=== PATIENT | female | born 1935 | race American Indian/Alaskan Native ===

== ENCOUNTER 2018-01-04 22:24 | Observation (INO) | payer OTHER ==
[2018-01-04 22:43] VITALS: BMI 22.3
[2018-01-04 23:32] LABS: BASO # 0.02 K/mm3 (0.0-2.0); BASO % 0.1 % (0.0-3.0); EOS % 0.1 % (1.5-5.0); GRAN # 16.14 (1.4-6.5); GRAN % 91.2 % (50.0-68.0); HEMOGLOBIN 12.4 g/dL (12.0-16.0); LYMPH # 1.1 (1.2-3.4); MEAN CELL VOLUME 91.4 fl (80.0-105.0); MEAN CORPUSCULAR HEMOGLOBIN 30.3 pg (25.0-35.0); MEAN CORPUSCULAR HGB CONC 33.2 g/dl (31.0-37.0); MEAN PLATELET VOLUME 10.1 fl (7.0-11.0); MONO # 0.5 (0.1-0.6); MONO % 2.6 % (1.0-6.0); PLATELET COUNT 300 10^3/uL (120.0-450.0); RBC 4.09 10^6/uL (3.5-6.1); RED CELL DISTRIBUTION WIDTH 13.4 % (11.5-14.5); WHITE BLOOD COUNT 17.7 10^3/ul (4.5-11.0)
[2018-01-04 23:43] LABS: ACETAMINOPHEN < 10.0 ug/ml (10.0-20.0); SALICYLATE < 1 mg/dL (2.0-20.0)
[2018-01-05 00:01] LABS: BAND 9 % (0-2); BASOPHIL 1 % (0.0-1.0); LYMPHOCYTE 6 % (22.0-35.0); MONOCYTE 4 % (1.0-6.0); NEUTROPHIL 80 % (50.0-70.0); PLATELET ESTIMATE NORMAL (NORMAL)
[2018-01-05 00:33] LABS: ALB/GLOB RATIO 1.5 (1.1-1.8); CALCIUM 10.1 mg/dL (8.4-10.5); GFR AFRICAN-AMERICAN > 60; GFR NON-AFRICAN AMERICAN > 60
--- NOTE | 2018-01-05 00:39 | ED PDOC ---
Arrival/HPI - General Chief Complaint: Weakness/Neurological Deficit Time Seen by Provider: 01/04/18 22:38 Historian: Patient, EMS - History of Present Illness Narrative History of Present Illness (Text): 01/04/18 22:45 Kimberlee Carvalho is an 82 year old female who presents to the emergency department brought in by EMS for altered mental status. Patient reports she has been experiencing generalized weakness and notes she feels unwell. Patient denies any abdominal pain, urinary symptoms, chest pain, or any other complaints. Symptom Onset: Gradual Symptom Course: Unchanged Activities at Onset: Light Context: Home Past Medical History - Provider Review Nursing Documentation Reviewed: Yes - Psychiatric Hx Substance Use: No Family/Social History - Physician Review Nursing Documentation Reviewed: Yes Family/Social History: Unknown Family HX Smoking Status: Never Smoked Hx Alcohol Use: No Hx Substance Use: No Allergies/Home Meds Allergies/Adverse Reactions: Allergies No Known Allergies Allergy (Verified 01/04/18 22:43) Review of Systems - Physician Review All systems were reviewed & negative as marked: Yes - Review of Systems Constitutional: Other (+generalized weakness). absent: Fevers Eyes: Normal ENT: Normal Respiratory: Normal. absent: SOB, Cough Cardiovascular: Normal. absent: Chest Pain Genitourinary Female: Normal. absent: Dysuria, Frequency, Hematuria, Urine Output Changes Musculoskeletal: Normal. absent: Back Pain, Neck Pain Skin: Normal. absent: Rash Neurological: Normal. absent: Headache, Dizziness Endocrine: Normal Hemo/Lymphatic: Normal Psychiatric: Normal Physical Exam Vital Signs Reviewed: Yes Vital Signs Temp Pulse Resp BP Pulse Ox 01/05/18 05:28 66 18 130/62 95 01/05/18 03:47 69 18 137/67 96 01/05/18 00:58 80 16 130/72 96 01/04/18 22:38 97.6 F 94 H 19 170/66 H 98 Temperature: Afebrile Blood Pressure: Normal Pulse: Regular Respiratory Rate: Normal Appearance: Positive for: Well-Appearing, Non-Toxic, Comfortable Pain Distress: None Mental Status: Positive for: Alert and Oriented X 3 - Systems Exam Head: Present: Atraumatic, Normocephalic Pupils: Present: PERRL Extroacular Muscles: Present: EOMI Conjunctiva: Present: Normal Mouth: Present: Moist Mucous Membranes Neck: Present: Normal Range of Motion Respiratory/Chest: Present: Clear to Auscultation, Good Air Exchange. No: Respiratory Distress, Accessory Muscle Use Cardiovascular: Present: Regular Rate and Rhythm, Normal S1, S2. No: Murmurs Abdomen: No: Tenderness, Distention, Peritoneal Signs Back: Present: Normal Inspection Upper Extremity: Present: Normal Inspection. No: Cyanosis, Edema Lower Extremity: Present: Normal Inspection. No: Edema Neurological: Present: GCS=15, CN II-XII Intact, Speech Normal Skin: Present: Warm, Dry, Normal Color. No: Rashes Psychiatric: Present: Alert, Oriented x 3, Normal Insight, Normal Concentration Medical Decision Making ED Course and Treatment: 01/04/18 22:45 Impression: 82 year old female complaining of generalized malaise/weakness. Plan: -- CT Abdomen and Pelvis w/o contrast -- EKG -- Labs, blood type and screen, alcohol level -- Urinalysis -- Reassess and disposition Progress Notes: 01/04/18 23:05 Reviewed EKG, NSR at [address]pm[address] LVH. Non-specific ST/T wave changes. 01/05/18 03:16 CT Abdomen and Pelvis shows: Limitations: Lack of intravenous contrast. Motion artifact - mild to moderate. Lung bases: Minimal atelectasis/scarring. Lungs: LLL calcified granuloma. ABDOMEN: Liver: Several probable cysts, to 1.4 cm. Several too small to characterize lesions. 1.0 cm peripherally calcified hypodense lesion. Small calcification. Gallbladder and bile ducts: No calcified stones. No ductal dilation. Pancreas: Unremarkable. No ductal dilation. Spleen: No splenomegaly. Adrenals: No mass. Kidneys and ureters: Probable 1.4 cm RIGHT renal cyst. No renal calculi. No hydronephrosis. Stomach and bowel: No definite mural thickening. No obstruction. PELVIS: Appendix: No definite findings to suggest acute appendicitis. Bladder: Distended bladder. No stones. Reproductive: Unremarkable as visualized. ABDOMEN and PELVIS: Intraperitoneal space: No significant fluid collection. No free air. Bones/joints: Probable bone islands. Mild degenerative changes of spine. No acute fracture. Soft tissues: Small umbilical hernia containing fat. Vasculature: Unremarkable. No aneurysm. Lymph nodes: No pathologically enlarged lymph nodes. IMPRESSION: 1. No definite acute intraabdominal abnormality. 2. Liver lesion, incompletely characterized. Suggest nonemergent MRI. 3. Incidental/non-acute findings are described above. 01/05/18 03:43 Case discussed with medical care evaluation specialist rigging and controls aircraft mechanic, who is aware and agrees with plan. Case discussed with Dr. Edwards, who is aware and agrees with plan. Accepts pt in to hospitalist service. Pt will go to [facility] observation for altered mental status and leukocytosis. 01/05/18 03:45 CT Head shows: Brain: Moderate atrophy. No definite intracranial hemorrhage. No mass. Several scattered foci of decreased attenuation within periventricular/subcortical white matter. No definite edema. Ventricles: No hydrocephalus. Bones/joints: No acute fracture. Several small lucent calvarial lesions, nonspecific. Soft tissues: Unremarkable. Sinuses: No acute sinusitis. Mastoid air cells: No mastoid effusion. Orbits: Unremarkable as visualized. IMPRESSION: 1. Nonspecific white matter changes. Acute infarction may be CT occult within first 24 hours. If a focal deficit persists, consider followup CT or MRI for further evaluation. 2. Incidental/non-acute findings are described above. - Lab Interpretations Lab Results: 01/04/18 23:25 01/04/18 23:51 Lab Results 01/05/18 01:13: pO2 43, VBG pH 7.30 L, VBG pCO2 55.0, VBG HCO3 27.1, VBG Total CO2 28.8 H, VBG O2 Sat (Calc) 79.3 H, VBG Base Excess -0.3 L, VBG Potassium 3.8 , Glucose 94, Lactate 1.8, FiO2 21.0, Sodium 138.0, Chloride 106.0, Venous Blood Potassium 3.8 01/05/18 00:36: Blood Type Confirm O POSITIVE 01/04/18 23:51: Blood Type O POSITIVE, Antibody Screen Negative, BBK History Checked No verified bt 01/04/18 23:51: Sodium 141, Potassium 4.3, Chloride 102, Carbon Dioxide 27, Anion Gap 16, BUN 13, Creatinine 0.8, Est GFR ( Amer) > 60, Est GFR (Non- Af Amer) > 60, Random Glucose 97, Calcium 10.1, Magnesium 2.0, Total Bilirubin 1.3, AST 36, ALT 26, Alkaline Phosphatase 71, Total Protein 6.7, Albumin 4.0, Globulin 2.7, Albumin/Globulin Ratio 1.5 01/04/18 23:25: Alcohol, Quantitative < 10 05/08/18 23:25: Salicylates < 1 L, Acetaminophen < 10.0 L 01/04/18 23:25: WBC 17.7 H, RBC 4.09, Hgb 12.4, Hct 37.4, MCV 91.4, MCH 30.3, MCHC 33.2, RDW 13.4, Plt Count 300, MPV 10.1, Gran % 91.2 H, Lymph % (Auto) 6.0 L, [place] % (Auto) 2.6, Eos % (Auto) 0.1 L, Baso % (Auto) 0.1, Gran # 16.14 H, Lymph # (Auto) 1.1 L, [place] # (Auto) 0.5, Eos # (Auto) 0.0, Baso # (Auto) 0.02, Neutrophils % (Manual) 80 H, Band Neutrophils % 9 H, Lymphocytes % (Manual) 6 L , Monocytes % (Manual) 4, Basophils % (Manual) 1, Platelet Evaluation Normal I have reviewed the lab results: Yes - RAD Interpretation Radiology Orders: 01/04/18 22:48 CHEST PORTABLE [RAD] Stat 01/05/18 00:09 ABD & PELVIS W/O PO OR IV CONT [CT] Stat 01/05/18 02:42 HEAD W/O CONTRAST [CT] Stat Animation Artist: Radiologist - EKG Interpretation Interpreted by ED Physician: Yes Type: 12 lead EKG - Medication Orders Current Medication Orders: Discontinued Medications Diphenhydramine HCl (Benadryl) 25 mg IVP STAT STA Stop: 01/06/18 23:48 Last Admin: 01/06/18 23:52 Dose: 25 mg IVP Administration Document 01/06/18 23:52 FC (Rec: 01/06/18 23:53 FC [id number]) Charges for Administration # of IVP Administrations 1 Docusate Sodium (Colace) 100 mg PO BID [facility] Last Admin: 01/07/18 17:01 Dose: 100 mg Last Bowel Movement Document 01/07/18 17:01 BIR (Rec: 01/07/18 17:01 BIR [id number]) Last Bowel Movement Last Bowel Movement 01/07/18 Ceftriaxone Sodium (Rocephin 1 Gram Ivpb) 1 gm in 100 mls @ 200 mls/hr IVPB STAT STA PRN Reason: Protocol Stop: 01/05/18 04:11 Last Admin: 01/05/18 03:57 Dose: 200 mls/hr eMAR Start Stop Document 01/05/18 03:57 RG (Rec: 01/05/18 03:58 RG [id number]) Intravenous Solution Start Date 01/05/18 Start Time 03:57 Sodium Chloride (Sodium Chloride 0.9%) 1,000 mls @ 80 mls/hr IV .[id number] AKILAH Last Admin: 01/06/18 02:18 Dose: 80 mls/hr eMAR Start Stop Document 01/06/18 02:18 MARTHA (Rec: 01/06/18 02:18 [id number]) Intravenous Solution Start Date 01/06/18 Start Time 02:18 Ciprofloxacin (Cipro 400mg/200ml Dsw) 400 mg in 200 mls @ 133.3 mls/hr IVPB Q12 AKILAH PRN Reason: Protocol Stop: 01/05/18 11:31 Ceftriaxone Sodium (Rocephin 1 Gram Ivpb) 1 gm in 100 mls @ 100 mls/hr IVPB DAILY AKILAH PRN Reason: Protocol Last Admin: 01/07/18 09:30 Dose: 100 mls/hr eMAR Start Stop Document 01/07/18 09:30 BIR (Rec: 01/07/18 09:30 BIR [id number]) Intravenous Solution Start Date 01/07/18 Start Time 09:30 End Date 01/07/18 End time 10:30 Total Infusion Time 60 Ibuprofen (Motrin Tab) 400 mg PO Q6H AKILAH Stop: 01/05/18 22:16 Last Admin: 01/05/18 22:35 Dose: Not Given Non-Admin Reason: Patient Asleep Lorazepam (Ativan) 1 mg IVP ONCE ONE PRN Reason: Protocol Stop: 01/05/18 22:56 Last Admin: 01/05/18 23:18 Dose: 1 mg IVP Administration Document 01/05/18 23:18 MARTHA (Rec: 01/05/18 23:19 [id number]) Charges for Administration # of IVP Administrations 1 Behavioural Document 01/05/18 23:18 MARTHA (Rec: 01/05/18 23:19 [id number]) Maintenance Maintenance Dose No Nonmedicinal Nonmedicinal Interventions Redirect Behavior Behavior for Medication: Anxiety Re-Assess: Reassess Psych Meds Document 01/05/18 23:48 MARTHA (Rec: 01/06/18 00:55 MARTHA [id number]) Reassess Psych Med Effective Lorazepam (Ativan) 1 mg IVP STAT STA PRN Reason: Protocol Stop: 01/07/18 01:02 Last Admin: 01/07/18 01:07 Dose: 1 mg IVP Administration Document 01/07/18 01:07 FC (Rec: 01/07/18 01:07 FC [id number]) Charges for Administration # of IVP Administrations 1 Behavioural Document 01/07/18 01:07 FC (Rec: 01/07/18 01:07 FC [id number]) Maintenance Maintenance Dose No Nonmedicinal Nonmedicinal Interventions Therapeutic Communication Give food/fluids Behavior Behavior for Medication: Continuous pacing/restlessness Hallucinations/paranoid/ delusions/extreme fear Insomnia Re-Assess: Reassess Psych Meds Document 01/07/18 01:37 FC (Rec: 01/07/18 02:59 FC [id number]) Reassess Psych Med Effective Pantoprazole Sodium (Protonix Ec Tab) 40 mg PO 0600,1600 AKILAH Last Admin: 01/07/18 17:01 Dose: 40 mg - Scribe Statement The provider has reviewed the documentation as recorded by the Yas Linn Provider Scribe Attestation: All medical record entries made by the Scribe were at my direction and personally dictated by me. I have reviewed the chart and agree that the record accurately reflects my personal performance of the history, physical exam, medical decision making, and the department course for this patient. I have also personally directed, reviewed, and agree with the discharge instructions and disposition. Disposition/Present on Arrival - Present on Arrival Any Indicators Present on Arrival: No History of DVT/PE: No History of Uncontrolled Diabetes: No Urinary Catheter: No History of Decub. Ulcer: No History Surgical Site Infection Following: None - Disposition Have Diagnosis and Disposition been Completed?: Yes Diagnosis: Dementia Disposition: HOSPITALIZED Disposition Time: 03:45 Condition: GOOD
[2018-01-05 00:40] LABS: ALT/SGPT 26 U/L (7-56); AST/SGOT 36 U/L (14-36); BLOOD UREA NITROGEN 13 mg/dL (7-21)
[2018-01-05 01:51] LABS: VENOUS BLOOD GAS BASE EXCESS -0.3 mmol/L (0.0-2.0); VENOUS BLOOD GAS PO2 43 mm/Hg (30-55)
--- NOTE | 2018-01-05 02:49 | CT ---
EXAM: CT Abdomen and Pelvis Without Intravenous Contrast CLINICAL HISTORY: 82 years old, female; Pain; Abdominal pain; Additional info: Abd pain TECHNIQUE: Axial computed tomography images of the abdomen and pelvis without intravenous contrast. All CT scans at this facility use one or more dose reduction techniques, viz.: automated exposure control; ma/kV adjustment per patient size (including targeted exams where dose is matched to indication; i.e. head); or iterative reconstruction technique. Coronal and sagittal reformatted images were created and reviewed. COMPARISON: No relevant prior studies available. FINDINGS: Limitations: Lack of intravenous contrast. Motion artifact - mild to moderate. Lung bases: Minimal atelectasis/scarring. Lungs: LLL calcified granuloma. ABDOMEN: Liver: Several probable cysts, to 1.4 cm. Several too small to characterize lesions. 1.0 cm peripherally calcified hypodense lesion. Small calcification. Gallbladder and bile ducts: No calcified stones. No ductal dilation. Pancreas: Unremarkable. No ductal dilation. Spleen: No splenomegaly. Adrenals: No mass. Kidneys and ureters: Probable 1.4 cm RIGHT renal cyst. No renal calculi. No hydronephrosis. Stomach and bowel: No definite mural thickening. No obstruction. PELVIS: Appendix: No definite findings to suggest acute appendicitis. Bladder: Distended bladder. No stones. Reproductive: Unremarkable as visualized. ABDOMEN and PELVIS: Intraperitoneal space: No significant fluid collection. No free air. Bones/joints: Probable bone islands. Mild degenerative changes of spine. No acute fracture. Soft tissues: Small umbilical hernia containing fat. Vasculature: Unremarkable. No aneurysm. Lymph nodes: No pathologically enlarged lymph nodes. IMPRESSION: 1. No definite acute intraabdominal abnormality. 2. Liver lesion, incompletely characterized. Suggest nonemergent MRI. 3. Incidental/non-acute findings are described above.
[2018-01-05] MEDS ORDERED: cefTRIAXone 1 gm 1 GM/100 ML BAG IVPB STA (03:42)
--- NOTE | 2018-01-05 03:44 | CT ---
EXAM: CT Head Without Intravenous Contrast CLINICAL HISTORY: 82 years old, female; Signs and symptoms; Altered mental status/memory loss; Additional info: AMS TECHNIQUE: Axial computed tomography images of the head/brain without intravenous contrast. All CT scans at this facility use one or more dose reduction techniques, viz.: automated exposure control; ma/kV adjustment per patient size (including targeted exams where dose is matched to indication; i.e. head); or iterative reconstruction technique. Coronal and sagittal reformatted images were created and reviewed. COMPARISON: Limitations: Motion artifact - mild. FINDINGS: Brain: Moderate atrophy. No definite intracranial hemorrhage. No mass. Several scattered foci of decreased attenuation within periventricular/subcortical white matter. No definite edema. Ventricles: No hydrocephalus. Bones/joints: No acute fracture. Several small lucent calvarial lesions, nonspecific. Soft tissues: Unremarkable. Sinuses: No acute sinusitis. Mastoid air cells: No mastoid effusion. Orbits: Unremarkable as visualized. IMPRESSION: 1. Nonspecific white matter changes. Acute infarction may be CT occult within first 24 hours. If a focal deficit persists, consider followup CT or MRI for further evaluation. 2. Incidental/non-acute findings are described above.
[2018-01-05] MEDS: Sodium Chloride 0.9% 1,000 ML IV SCH (04:11)
--- NOTE | 2018-01-05 06:25 | CP.PCM.HP ---
<Joey Herring - Last Filed: 01/05/18 07:01> History of Present Illness - History of Present Illness History of Present Illness: CC: Weakness, AMS HPI: 82 year old female who presented to ED via EMS for generalized weakens. Patient reports walking significant amount of distance before being picked up by EMS. Patient primarily speaks Creole and with assistance from ED staff history is obtained. Patient is unable to report what medication she takes due to confusion. She does not recall the events leading up to her presentation at ED. Patient is noted to be limited with history. Patient denies chest pain, shortness of breath, abdominal pain, diarrhea, constipation, fever, chills. 12 point ROS is benign otherwise mentioned in HPI PMH:Denies PSH:Denies SOCHX: T:denies E:denies ID:denies ALL: NKDA MEDS: Denies Present on Admission - Present on Admission Any Indicators Present on Admission: No Review of Systems - Review of Systems All systems: reviewed and no additional remarkable complaints except (as mentioned in HPI) Past Patient History - Past Social History Smoking Status: Never Smoked Alcohol: None Drugs: Denies - PSYCHIATRIC Hx Substance Use: No - SURGICAL HISTORY Hx Surgeries: No Meds Allergies/Adverse Reactions: Allergies Allergy/AdvReac Type Severity Reaction Status Date / Time No Known Allergies Allergy Verified 01/04/18 22:43 Physical Exam - Constitutional Appears: Non-toxic Additional comments: foul body odor - Head Exam Head Exam: ATRAUMATIC, NORMAL INSPECTION, NORMOCEPHALIC - Eye Exam Eye Exam: EOMI, PERRL - ENT Exam ENT Exam: Mucous Membranes Dry - Neck Exam Neck exam: Positive for: Full Rom. Negative for: Tenderness - Respiratory Exam Respiratory Exam: Clear to Auscultation Bilateral, NORMAL BREATHING PATTERN. absent: Rhonchi, Wheezes - Cardiovascular Exam Cardiovascular Exam: Tachycardia, REGULAR RHYTHM, +S1, +S2 - GI/Abdominal Exam GI & Abdominal Exam: Normal Bowel Sounds, Soft. absent: Tenderness - Extremities Exam Extremities exam: Negative for: calf tenderness, tenderness - Neurological Exam Neurological exam: Alert Additional comments: Motor and sensory grossly intact, patient moving all four extremities spontaneously - Psychiatric Exam Psychiatric exam: Normal Affect - Skin Skin Exam: Dry, Warm Results - Vital Signs Recent Vital Signs: Last Vital Signs Temp 97.6 F 01/04/18 22:38 Pulse 66 01/05/18 05:29 Resp 18 01/05/18 05:29 BP 130/62 01/05/18 05:29 Pulse Ox 95 01/05/18 05:29 - Labs Result Diagrams: 01/04/18 23:25 01/04/18 23:51 Assessment & Plan - Assessment and Plan (Free Text) Assessment: 82 year old female who presents to [facility] via [place] being [place] in public park[place]path. Patient found to have elevated HR and WBC. Patient admitted for weakness and SIRS. ID consulted and patient started on ciprofloxacin for suspected UTI. Plan: SIRS - Tachycardic, elevated WBC with presumed infection source being UTI, UA and urine culture pending - IVF 80mL/HR NS - IV antibiotics ciprofloxacin for suspected complicated UTI, will need to follow up past medical history with family/PMD Suspected UTI - Tea colored urine on presentation - Elevated WBC, UA and Urine culture pending - Start IV ciprofloxacin AMS - Head CT showing nonspecific white matter changes, acute infarction may be CT occult within first 24 hours, if focal deficit persists consider follow up CT or MRI for further evaluation, moderate brain atrophy, no definite intracranial hemorrhage or mass - Likely secondary to UTI Leukocytosis - WBC 17.7 on admission, granulocytosis - Etiology: Likely UTI - Chest xray negative - f/u UA and urine culture - Continue antibiotic therapy Liver lesion - Abdominal Pelvis CT showing no definite acute intraabdominal abn, liver lesion suggest nonemergent MRI DVT ppx: SCD GI ppx: Pepcid Case and plan discussed with attending - Date & Time Date: 01/05/18 Time: 06:28 <Janessa Edwards - Last Filed: 01/05/18 07:30> Results - Vital Signs Recent Vital Signs: Last Vital Signs Temp 97.6 F 01/04/18 22:38 Pulse 66 01/05/18 05:29 Resp 18 01/05/18 05:29 BP 130/62 01/05/18 05:29 Pulse Ox 95 01/05/18 05:29 - Labs Result Diagrams: 01/04/18 23:25 01/04/18 23:51 Attending/Attestation - Attestation I have personally seen and examined this patient.: Yes I have fully participated in the care of the patient.: Yes I have reviewed all pertinent clinical information: Yes Notes (Text): 01/05/18 07:24 Agree with documentation and orders placed.
[2018-01-05] MEDS ORDERED: Ciprofloxacin 400mg/200ml D5W 400 MG/200 ML BAG IVPB ONE (06:53)
--- NOTE | 2018-01-05 08:12 | RAD ---
HISTORY: Altered mental status. COMPARISON: No prior. FINDINGS: LUNGS: No active pulmonary disease. PLEURA: No significant pleural effusion identified, no pneumothorax apparent. CARDIOVASCULAR: Normal. OSSEOUS STRUCTURES: No significant abnormalities. VISUALIZED UPPER ABDOMEN: Normal. OTHER FINDINGS: None. IMPRESSION: No active disease.
[2018-01-05] MEDS ORDERED: Ciprofloxacin 400mg/200ml D5W 400 MG/200 ML BAG IVPB SCH (10:00)
[2018-01-05 10:18] LABS: BASO # 0.03 K/mm3 (0.0-2.0); BASO % 0.2 % (0.0-3.0); EOS % 0.3 % (1.5-5.0); GRAN # 11.03 (1.4-6.5); GRAN % 81.5 % (50.0-68.0); HEMOGLOBIN 12.1 g/dL (12.0-16.0); LYMPH # 1.7 (1.2-3.4); LYMPH % 12.5 % (22.0-35.0); MEAN CELL VOLUME 91.7 fl (80.0-105.0); MEAN CORPUSCULAR HEMOGLOBIN 29.7 pg (25.0-35.0); MEAN CORPUSCULAR HGB CONC 32.4 g/dl (31.0-37.0); MEAN PLATELET VOLUME 9.9 fl (7.0-11.0); MONO # 0.7 (0.1-0.6); MONO % 5.5 % (1.0-6.0); RBC 4.08 10^6/uL (3.5-6.1); RED CELL DISTRIBUTION WIDTH 13.4 % (11.5-14.5); WHITE BLOOD COUNT 13.5 10^3/ul (4.5-11.0)
[2018-01-05 10:30] LABS: HDL CHOLESTEROL 69 mg/dL (29-60)
[2018-01-05 10:42] LABS: TROPONIN I 0.04 ng/mL
[2018-01-05 10:43] LABS: LDL CHOLESTEROL < 30 mg/dL (0-129)
[2018-01-05 11:56] LABS: PH,URINE 6.5 (4.7-8.0); URINE BILIRUBIN NEGATIVE (NEGATIVE); URINE BLOOD NEGATIVE (NEGATIVE); URINE GLUCOSE (UA) NEGATIVE (NEGATIVE); URINE LEUKOCYTE ESTERASE SMALL Leu/uL (NEGATIVE); URINE PROTEIN NEGATIVE mg/dL (<30 mg/dL); URINE UROBILINOGEN 0.2 E.U./dL (<1 E.U./dL)
[2018-01-05 12:08] LABS: URINE APPEARANCE CLEAR (CLEAR); URINE COLOR YELLOW (YELLOW)
[2018-01-05 12:22] LABS: URINE BACTERIA FEW (NEG); URINE RBC 0 - 2 /hpf (0-2)
--- NOTE | 2018-01-05 13:56 | CARD ---
APPROVED REPORT EKG Measurement Heart [id number] <Conclusion> Normal sinus rhythm Voltage criteria for left ventricular hypertrophy NSSTW changes
--- NOTE | 2018-01-05 14:08 | CP.PCM.CON ---
History of Present Illness - History of Present Illness History of Present Illness: 82 year old female with unknown past medical history was [place] [facility] [place] of apparent confusion and was found wandering outside of her house. The patient is also complaining of some weakness, does not recall how she got to the hospital. She is currently not in distress, denies cough, no headache, no nausea, no abdominal pain, no diarrhea, no dysuria. HPI and ROS is difficult to obtain because of language barrier and patient mostly speaks Creole. She was noted to have leukocytosis and Infectious Diseases consult is requested to further evaluate and manage. Review of Systems - Review of Systems All systems: reviewed and no additional remarkable complaints except (as per HPI ) Past Patient History - Past Social History Smoking Status: Never Smoked Alcohol: None Drugs: Denies - PSYCHIATRIC Hx Substance Use: No - SURGICAL HISTORY Hx Surgeries: No Meds Allergies/Adverse Reactions: Allergies Allergy/AdvReac Type Severity Reaction Status Date / Time No Known Allergies Allergy Verified 01/04/18 22:43 - Medications Medications: Current Medications Docusate Sodium (Colace) 100 mg PO BID [facility] Sodium Chloride (Sodium Chloride 0.9%) 1,000 mls @ 80 mls/hr IV .[id number] [facility] Last Admin: 01/05/18 04:11 Dose: 80 mls/hr Pantoprazole Sodium (Protonix Ec Tab) 40 mg PO 0600,1600 [facility] Physical Exam - Constitutional Appears: Non-toxic, Chronically Ill - Head Exam Head Exam: NORMAL INSPECTION - ENT Exam ENT Exam: Mucous Membranes Moist - Neck Exam Neck exam: Negative for: Meningismus - Respiratory Exam Respiratory Exam: Decreased Breath Sounds - Cardiovascular Exam Cardiovascular Exam: +S1, +S2 - GI/Abdominal Exam GI & Abdominal Exam: Soft. absent: Tenderness Results - Vital Signs Recent Vital Signs: Last Vital Signs Temp 98.3 F 01/05/18 06:00 Pulse 69 01/05/18 06:00 Resp 19 01/05/18 06:00 BP 117/64 01/05/18 06:00 Pulse Ox 99 01/05/18 06:00 - Labs Result Diagrams: 01/05/18 10:00 01/04/18 23:51 Assessment & Plan - Assessment and Plan (Free Text) Plan: Assessment Systemic Inflammatory Response Syndrome, consider acute stress reaction, R/O sepsis Plan Patient was given a dose of Rocephin - will follow up blood, urine cx, PCT; CXR does not show infiltrates, CT A/P shows left lower lobe calcified granuloma, liver cysts (should get MRI) will monitor clinically
--- NOTE | 2018-01-05 15:17 | CARD ---
APPROVED REPORT EKG Measurement Heart [id number] [place] [id number] <Conclusion> Normal sinus rhythm Voltage criteria for left ventricular hypertrophy Nonspecific ST abnormality
[2018-01-05] MEDS: Pantoprazole 40 mg EC Tab PO SCH (18:14)
--- NOTE | 2018-01-05 21:28 | CON ---
DATE: 01/05/2018 REASON FOR CONSULTATION AND FOLLOWUP: Cardiac evaluation, complaining of chest pain. BRIEF CLINICAL HISTORY: An 82-year-old female came to the emergency room with complaining of generalized weakness. Information obtained from the chair. Patient speaks Creole, but still complaining, in Italian, of chest pain allover anterior chest wall with tenderness, also complaining of mild abdominal pain. Chest pain appears to be atypical and tenderness. PAST MEDICAL HISTORY: Nothing significant. SOCIAL HISTORY: Nothing documented in smoking or alcohol abuse. CURRENT MEDICATIONS: No unknown medication at home. ALLERGIES: NO KNOWN DRUG ALLERGIES. REVIEW OF SYSTEMS: As per HPI. No prior admission to the hospital from the chart. PHYSICAL EXAMINATION: VITAL SIGNS: Height of the patient is 5 feet 4 inch. Weight of the patient is 130 pounds, body mass index 22.3 kg/m2. Temperature 98.3, heart rate 60, and blood pressure 117/64. HEENT: PERRLA. Extraocular muscles are intact. NECK: Supple. No carotid bruit or thyromegaly. CHEST: Clear to auscultation. HEART: S1 and S2 regular. ABDOMEN: Soft. EXTREMITIES: Clubbing and cyanosis negative. LABORATORY DATA: WBC , hemoglobin 12.4, hematocrit 37.4, platelet count 300. Chemistry shows sodium 141, potassium 4.3, chloride of 102, carbon dioxide of 27, anion gap of 15, BUN 13, creatinine 0.8. EKG showed normal sinus, no acute ST-T changes noted, maybe LVH. IMPRESSION AND PLAN: Atypical chest pain, tenderness on the chest, but given the age and multiple risk factors, I would suggest echo, serial CPK, troponin though chest pain appears very atypical, musculoskeletal. Follow further recommendations made after the workup. We will also suggest a lipid profile, TSH, hemoglobin A1c. We will order these if not ordered. We will follow with you. Thank you, Dr. Arvizu, for providing us the opportunity in taking care of the patient, Kimberlee Carvalho. Nico Wilson MD
[2018-01-06] MEDS: Sodium Chloride 0.9% 1,000 ML IV SCH (02:18)
[2018-01-06] MEDS: Pantoprazole 40 mg EC Tab PO SCH ×2 (05:44→17:20)
[2018-01-06 06:24] LABS: BASO # 0.02 K/mm3 (0.0-2.0); BASO % 0.3 % (0.0-3.0); EOS # 0.1 (0.0-0.7); EOS % 1.6 % (1.5-5.0); GRAN # 4.71 (1.4-6.5); GRAN % 63.9 % (50.0-68.0); HEMOGLOBIN 10.6 g/dL (12.0-16.0); LYMPH # 1.9 (1.2-3.4); LYMPH % 26.3 % (22.0-35.0); MEAN CELL VOLUME 91.4 fl (80.0-105.0); MEAN CORPUSCULAR HEMOGLOBIN 29.4 pg (25.0-35.0); MEAN CORPUSCULAR HGB CONC 32.1 g/dl (31.0-37.0); MEAN PLATELET VOLUME 9.8 fl (7.0-11.0); MONO # 0.6 (0.1-0.6); MONO % 7.9 % (1.0-6.0); RBC 3.61 10^6/uL (3.5-6.1); RED CELL DISTRIBUTION WIDTH 13.7 % (11.5-14.5); WHITE BLOOD COUNT 7.4 10^3/ul (4.5-11.0)
[2018-01-06 07:09] LABS: ALB/GLOB RATIO 1.2 (1.1-1.8); ALBUMIN 3.1 g/dL (3.0-4.8); ALT/SGPT 26 U/L (7-56); AST/SGOT 33 U/L (14-36); BLOOD UREA NITROGEN 16 mg/dL (7-21); CALCIUM 9.5 mg/dL (8.4-10.5); GFR AFRICAN-AMERICAN > 60; GFR NON-AFRICAN AMERICAN > 60
[2018-01-06 07:39] LABS: TROPONIN I < 0.01 ng/mL
[2018-01-06 07:47] VITALS: RESP 18
[2018-01-06] MEDS: cefTRIAXone 1 gm 1 GM/100 ML BAG IVPB SCH (09:31)
--- NOTE | 2018-01-06 09:50 | CP.PCM.PN ---
Subjective - Date & Time of Evaluation Date of Evaluation: 01/06/18 Time of Evaluation: 06:30 - Subjective Subjective: Lying in bed, no distress, denies chest pain,denies shortness of breath Reason for consultation and follow up: Cardiac evaluation, chest pain Seen and examined by me and Dr. Zavala Objective - Vital Signs/Intake and Output Vital Signs (last 24 hours): Temp Pulse Resp BP Pulse Ox 97.4 F L 67 18 113/60 100 01/06/18 07:46 01/06/18 07:46 01/06/18 07:46 01/06/18 07:46 01/06/18 07:46 Intake and Output: 01/06/18 01/06/18 06:59 18:59 Intake Total 1080 Balance 1080 - Medications Medications: Current Medications Docusate Sodium (Colace) 100 mg PO BID [facility] Last Admin: 01/06/18 09:31 Dose: 100 mg Sodium Chloride (Sodium Chloride 0.9%) 1,000 mls @ 80 mls/hr IV .[id number] [facility] Last Admin: 01/06/18 02:18 Dose: 80 mls/hr Ceftriaxone Sodium (Rocephin 1 Gram Ivpb) 1 gm in 100 mls @ 100 mls/hr IVPB DAILY [facility] PRN Reason: Protocol Last Admin: 01/06/18 09:31 Dose: 100 mls/hr Pantoprazole Sodium (Protonix Ec Tab) 40 mg PO 0600,1600 [facility] Last Admin: 01/06/18 05:44 Dose: 40 mg - Labs Labs: 01/06/18 06:00 01/06/18 06:00 - Constitutional Appears: No Acute Distress - Head Exam Head Exam: NORMOCEPHALIC - Eye Exam Eye Exam: Normal appearance - ENT Exam ENT Exam: Mucous Membranes Moist - Respiratory Exam Respiratory Exam: NORMAL BREATHING PATTERN - Cardiovascular Exam Cardiovascular Exam: +S1, +S2 - GI/Abdominal Exam GI & Abdominal Exam: Soft, Normal Bowel Sounds - Extremities Exam Extremities Exam: Normal Capillary Refill - Neurological Exam Neurological Exam: Alert, Awake - Psychiatric Exam Psychiatric exam: Normal Affect, Normal Mood - Skin Skin Exam: Intact, Normal Color, Warm - Additional Findings Additional findings: speaks creole, language line Assessment and Plan - Assessment and Plan (Free Text) Assessment: An 82 year old female, frail, who was brought by EMS due to altered mental status. She speaks creole, needed language line,unable to obtain more history as she is confuse and does not remember anything. complaints of chest pain and chest tenderness and abdominal pain. Atypical chest pain with tenderness. Plan: Atypical chest pain, no evidence of myocardial ischemia Troponin negative results Echo will follow up result and final interpretation Denies chest pain now TSH level normal Continue IV hydration Continue current treatment Continue current medications Reconditioning Will follow up Plan and treatment discussed with Dr. Zavala
--- NOTE | 2018-01-06 10:07 | CARD ---
APPROVED REPORT EXAM: Two-dimensional and M-mode echocardiogram with Doppler and color Doppler. Other Information Quality : AverageRhythm : INDICATION Chest Pain 2D DIMENSIONS Left Atrium (2D)4.0 (1.6-4.0cm)IVSd1.2 (0.7-1.1cm) LVDd3.1 (3.9-5.9cm)PWd1.1 (0.7-1.1cm) LVDs2.1 (2.5-4.0cm)FS (%) 30.5 % LVEF (%)59.0 (>50%) M-Mode DIMENSIONS Aortic Root2.80 (2.2-3.7cm)Aortic Cusp Exc.1.40 (1.5-2.0cm) Aortic Valve AoV Peak Vrjivjxv037.0cm/sAoV VTI39.6cmLVOT Peak Bdovlxqm806.0cm/s LVOT VTI27.10cm Mitral Valve MV E Orotecmv526.0cm/sMV A Lrirzswz151.0cm/sE/A ratio0.9 TDI Lateral E' Peak V9.46cm/sMedial E' Peak V7.41cm/sE/Lateral E'10.9 E/Medial E'13.9 Pulmonary Valve PV Peak Xswqeloa23.5cm/sPV Peak Grad.2mmHg Tricuspid Valve TR Peak Qhwxhffa162tu/sRAP CNJSQDBS71uhLrXB Peak Gr.24mmHg [id number] LEFT VENTRICLE The left ventricle is normal size. There is normal left ventricular wall thickness. The left ventricular function is normal. The left ventricular ejection fraction is within the normal range. There is normal LV segmental wall motion. RIGHT VENTRICLE The right ventricle is normal size. ATRIA The left atrium size is normal. The right atrium size is normal. The interatrial septum is intact with no evidence for an atrial septal defect. AORTIC VALVE The aortic valve is normal in structure. MITRAL VALVE The mitral valve is normal in structure. Mitral regurgitation is trace. TRICUSPID VALVE The tricuspid valve is normal in structure. There is mild tricuspid regurgitation. PULMONIC VALVE The pulmonic valve is not well visualized. GREAT VESSELS The aortic root is normal in size. PERICARDIAL EFFUSION There is no pericardial effusion. <Conclusion> The left ventricle is normal size. There is normal left ventricular wall thickness. The left ventricular function is normal.
--- NOTE | 2018-01-06 12:20 | CP.PCM.PN ---
Subjective - Date & Time of Evaluation Date of Evaluation: 01/06/18 Time of Evaluation: 10:30 - Subjective Subjective: Comfortable in bed, no fevers, not in distress. Objective - Vital Signs/Intake and Output Vital Signs (last 24 hours): Temp Pulse Resp BP Pulse Ox 97.8 F 66 20 136/70 98 01/05/18 18:00 01/05/18 18:00 01/05/18 18:00 01/05/18 18:00 01/05/18 18:00 Intake and Output: 01/05/18 01/06/18 18:59 06:59 Intake Total 780 Output Total 400 Balance 380 - Medications Medications: Current Medications Docusate Sodium (Colace) 100 mg PO BID [facility] Last Admin: 01/05/18 18:13 Dose: 100 mg Sodium Chloride (Sodium Chloride 0.9%) 1,000 mls @ 80 mls/hr IV .[id number] [facility] Last Admin: 01/06/18 02:18 Dose: 80 mls/hr Pantoprazole Sodium (Protonix Ec Tab) 40 mg PO 0600,1600 [facility] Last Admin: 01/06/18 05:44 Dose: 40 mg - Labs Labs: 01/05/18 10:00 - Constitutional Appears: Non-toxic, Chronically Ill - Head Exam Head Exam: NORMAL INSPECTION - Neck Exam Neck Exam: absent: Meningismus - Respiratory Exam Respiratory Exam: Decreased Breath Sounds - Cardiovascular Exam Cardiovascular Exam: +S1, +S2 - GI/Abdominal Exam GI & Abdominal Exam: Soft. absent: Tenderness Assessment and Plan - Assessment and Plan (Free Text) Plan: Assessment Systemic Inflammatory Response Syndrome, consider acute stress reaction, R/O sepsis but so far no evidence and no source identified Plan Patient was given a dose of Rocephin - will follow up blood, urine cx; PCT was elevated and will follow up repeat PCT; CXR does not show infiltrates, CT A/P shows left lower lobe calcified granuloma, liver cysts (should get MRI) will continue to monitor clinically off antibiotics - discussed with Dr. Arvizu
--- NOTE | 2018-01-06 15:06 | CP.PCM.PN ---
<Janki Miller - Last Filed: 01/07/18 07:51> Subjective - Date & Time of Evaluation Date of Evaluation: 01/06/18 Time of Evaluation: 15:02 - Subjective Subjective: Janki Miller, PGy1, Progress Note for Dr Arvizu: Patient seen and examined at bedside. Pt agitated overnight, received ativan. Pt states that she wants to go home. Denies fever, chills, cp, sob, nausea, vomiting, abdominal pain, leg swelling, urinary symptoms. Objective - Vital Signs/Intake and Output Vital Signs (last 24 hours): Temp Pulse Resp BP Pulse Ox 97.4 F L 67 18 113/60 100 01/06/18 07:46 01/06/18 07:46 01/06/18 07:46 01/06/18 07:46 01/06/18 07:46 Intake and Output: 01/06/18 01/06/18 06:59 18:59 Intake Total 1080 700 Balance 1080 700 - Medications Medications: Current Medications Docusate Sodium (Colace) 100 mg PO BID [facility] Last Admin: 01/06/18 09:31 Dose: 100 mg Sodium Chloride (Sodium Chloride 0.9%) 1,000 mls @ 80 mls/hr IV .[id number] [facility] Last Admin: 01/06/18 02:18 Dose: 80 mls/hr Ceftriaxone Sodium (Rocephin 1 Gram Ivpb) 1 gm in 100 mls @ 100 mls/hr IVPB DAILY [facility] PRN Reason: Protocol Last Admin: 01/06/18 09:31 Dose: 100 mls/hr Pantoprazole Sodium (Protonix Ec Tab) 40 mg PO 0600,1600 [facility] Last Admin: 01/06/18 05:44 Dose: 40 mg - Labs Labs: 01/06/18 06:00 01/06/18 06:00 - Constitutional Appears: Non-toxic, No Acute Distress - Head Exam Head Exam: ATRAUMATIC, NORMOCEPHALIC - Eye Exam Eye Exam: EOMI, Normal appearance, PERRL. absent: Conjunctival injection, Nystagmus, Scleral icterus Pupil Exam: NORMAL ACCOMODATION, PERRL. absent: Fixed, Irregular, Unequal - ENT Exam ENT Exam: Mucous Membranes Moist - Neck Exam Neck Exam: Full ROM - Respiratory Exam Respiratory Exam: Chest Wall Tenderness, Clear to Ausculation Bilateral, NORMAL BREATHING PATTERN. absent: Accessory Muscle Use, Rales, Rhonchi, Wheezes, Stridor - Cardiovascular Exam Cardiovascular Exam: RRR, +S1, +S2. absent: Murmur - GI/Abdominal Exam GI & Abdominal Exam: Soft, Normal Bowel Sounds. absent: Distended, Firm, Guarding, Tenderness, Mass, Organomegaly, Rebound - Extremities Exam Extremities Exam: Normal Inspection. absent: Calf Tenderness, Pedal Edema - Back Exam Back Exam: NORMAL INSPECTION - Neurological Exam Neurological Exam: Alert, Awake, Oriented x3 - Psychiatric Exam Psychiatric exam: Normal Affect, Normal Mood - Skin Skin Exam: Dry, Normal Color, Warm Assessment and Plan - Assessment and Plan (Free Text) Assessment: 82 year old female with hx of dementia, admitted for SIRS, atypical chest pain: SIRS: likely acute stress reaction vs infectious source - CXR, US neg for infection - CT abd pelvis shows several liver lesions, measuring up to 1.5 cm. Recommend MRI - F/u Mri results. - resolved leukocytosis; procal elevated 37.46-> downtrending 30.86. - Urine culture and blood culture neg to date for 24 hours, obtained from [facility]. - received rocephin in ED. On rocephin. - ID on board. appreciate recs. Hospital associated delirium/sundowning: - Head CT showing nonspecific white matter changes, acute infarction may be CT occult within first 24 hours, if focal deficit persists consider follow up CT or MRI for further evaluation, moderate brain atrophy, no definite intracranial hemorrhage or mass - frequent re-orientation - small dose ativan prn - Plan discharge Liver lesion: - Abdominal Pelvis CT showing no definite acute intraabdominal abn, liver lesion suggest nonemergent MRI - MRI ordered. Hx of Dementia: - started on Donepezil DVT ppx: SCD GI ppx: Pepcid Case and plan discussed with attending Dr Arvizu. Janki Miller, PGY1 <Shellie Arvizu - Last Filed: 01/07/18 17:24> Objective - Vital Signs/Intake and Output Vital Signs (last 24 hours): Temp Pulse Resp BP Pulse Ox 98 F 75 18 130/65 99 01/06/18 17:32 01/06/18 17:32 01/06/18 17:32 01/06/18 17:32 01/06/18 17:32 Intake and Output: 01/07/18 01/07/18 06:59 18:59 Intake Total 780 800 Balance 780 800 - Medications Medications: Current Medications Docusate Sodium (Colace) 100 mg PO BID [facility] Last Admin: 01/07/18 17:01 Dose: 100 mg Sodium Chloride (Sodium Chloride 0.9%) 1,000 mls @ 80 mls/hr IV .[id number] [facility] Last Admin: 01/06/18 02:18 Dose: 80 mls/hr Pantoprazole Sodium (Protonix Ec Tab) 40 mg PO 0600,1600 [facility] Last Admin: 01/07/18 17:01 Dose: 40 mg - Labs Labs: 01/07/18 07:50 01/07/18 07:50 Attending/Attestation - Attestation I have personally seen and examined this patient.: Yes I have fully participated in the care of the patient.: Yes I have reviewed all pertinent clinical information, including history, physical exam and plan: Yes Notes (Text): 01/06/18 82 year old female with past medical history of dementia who presented with chest pain. Serial cardiac enzymes were negative and ACS was ruled ruled out. Cardiology evaluation was appreciated. She was found to have leukocytosis and elevated procalcitonin. ID is following. Cultures are negative to date. CT abd/pelvis showed several liver lesions. MRI abd/pelvis is ordered. Shellie Arvizu MD Hospitalist.
--- NOTE | 2018-01-06 15:44 | CP.PCM.DIS ---
Provider - Provider Date of Admission: 01/05/18 03:37 Attending physician: Shellie Arvizu MD Primary care physician: Leena Ramirez MD Time Spent in preparation of Discharge (in minutes): 60 Hospital Course - Lab Results Lab Results: Micro Results 01/05/18 11:36 Urine Urine Culture - Final No Growth (<1,000 CFU/ML) Most Recent Lab Values WBC 7.4 10^3/ul (4.5-11.0) D 01/06/18 06:00 RBC 3.61 10^6/uL (3.5-6.1) 01/06/18 06:00 Hgb 10.6 g/dL (12.0-16.0) L 01/06/18 06:00 Hct 33.0 % (36.0-48.0) L 01/06/18 06:00 MCV 91.4 fl (80.0-105.0) 01/06/18 06:00 MCH 29.4 pg (25.0-35.0) 01/06/18 06:00 MCHC 32.1 g/dl (31.0-37.0) 01/06/18 06:00 RDW 13.7 % (11.5-14.5) 01/06/18 06:00 Plt Count 261 10^3/uL (120.0-450.0) 01/06/18 06:00 MPV 9.8 fl (7.0-11.0) 01/06/18 06:00 Gran % 63.9 % (50.0-68.0) 01/06/18 06:00 Lymph % (Auto) 26.3 % (22.0-35.0) 01/06/18 06:00 Mcminn % (Auto) 7.9 % (1.0-6.0) H 01/06/18 06:00 Eos % (Auto) 1.6 % (1.5-5.0) 01/06/18 06:00 Baso % (Auto) 0.3 % (0.0-3.0) 01/06/18 06:00 Gran # 4.71 (1.4-6.5) 01/06/18 06:00 Lymph # (Auto) 1.9 (1.2-3.4) 01/06/18 06:00 Mcminn # (Auto) 0.6 (0.1-0.6) 01/06/18 06:00 Eos # (Auto) 0.1 (0.0-0.7) 01/06/18 06:00 Baso # (Auto) 0.02 K/mm3 (0.0-2.0) 01/06/18 06:00 Neutrophils % (Manual) 80 % (50.0-70.0) H 01/04/18 23:25 Band Neutrophils % 9 % (0-2) H 01/04/18 23:25 Lymphocytes % (Manual) 6 % (22.0-35.0) L 01/04/18 23:25 Monocytes % (Manual) 4 % (1.0-6.0) 01/04/18 23:25 Basophils % (Manual) 1 % (0.0-1.0) 01/04/18 23:25 Platelet Evaluation Normal (NORMAL) 01/04/18 23:25 pO2 43 mm/Hg (30-55) 01/05/18 01:13 VBG pH 7.30 (7.32-7.43) L 01/05/18 01:13 VBG pCO2 55.0 (40-60) 01/05/18 01:13 VBG HCO3 27.1 mmol/l (21-28) 01/05/18 01:13 VBG Total CO2 28.8 mmol.L (22-28) H 01/05/18 01:13 VBG O2 Sat (Calc) 79.3 % (40-65) H 01/05/18 01:13 VBG Base Excess -0.3 mmol/L (0.0-2.0) L 01/05/18 01:13 VBG Potassium 3.8 mmol/L (3.6-5.2) 01/05/18 01:13 Sodium 138.0 mmol/L (132-148) 01/05/18 01:13 Chloride 106.0 mmol/L (98-107) 01/05/18 01:13 Glucose 94 mg/dl (65-105) 01/05/18 01:13 Lactate 1.8 mmol/L (0.7-2.1) 01/05/18 01:13 FiO2 21.0 % 01/05/18 01:13 Sodium 143 mmol/L (132-148) 01/06/18 06:00 Potassium 4.2 mmol/L (3.6-5.0) 01/06/18 06:00 Chloride 108 mmol/L (98-107) H 01/06/18 06:00 Carbon Dioxide 29 mmol/L (21-33) 01/06/18 06:00 Anion Gap 10 (10-20) 01/06/18 06:00 BUN 16 mg/dL (7-21) 01/06/18 06:00 Creatinine 0.8 mg/dl (0.7-1.2) 01/06/18 06:00 Est GFR ( Amer) > 60 01/06/18 06:00 Est GFR (Non-Af Amer) > 60 01/06/18 06:00 Random Glucose 90 mg/dL (70-110) 01/06/18 06:00 Hemoglobin A1c 5.5 % (4.2-6.5) 01/05/18 10:00 Calcium 9.5 mg/dL (8.4-10.5) 01/06/18 06:00 Phosphorus 4.0 mg/dL (2.5-4.5) 01/05/18 10:00 Magnesium 2.0 mg/dL (1.7-2.2) 01/04/18 23:51 Total Bilirubin 0.8 mg/dL (0.2-1.3) 01/06/18 06:00 AST 33 U/L (14-36) 01/06/18 06:00 ALT 26 U/L (7-56) 01/06/18 06:00 Alkaline Phosphatase 58 U/L (38-126) 01/06/18 06:00 Total Creatine Kinase 149 U/L (35-230) 01/06/18 06:00 Troponin I < 0.01 ng/mL D 01/06/18 06:00 Total Protein 5.7 g/dL (5.8-8.3) L 01/06/18 06:00 Albumin 3.1 g/dL (3.0-4.8) 01/06/18 06:00 Globulin 2.6 gm/dL 01/06/18 06:00 Albumin/Globulin Ratio 1.2 (1.1-1.8) 01/06/18 06:00 Triglycerides 44 mg/dL (35-160) 01/05/18 10:00 Cholesterol 113 mg/dL (130-200) L 01/05/18 10:00 LDL Cholesterol Direct < 30 mg/dL (0-129) 01/05/18 10:00 HDL Cholesterol 69 mg/dL (29-60) H 01/05/18 10:00 Procalcitonin 30.86 NG/ML (0.19-0.49) H 01/06/18 06:30 TSH 3rd Generation 1.70 mIU/mL (0.46-4.68) 01/05/18 10:00 Venous Blood Potassium 3.8 mmol/L (3.6-5.2) 01/05/18 01:13 Urine Color Yellow (YELLOW) 01/05/18 11:35 Urine Appearance Clear (CLEAR) 01/05/18 11:35 Urine pH 6.5 (4.7-8.0) 01/05/18 11:35 Ur Specific Leander <= 1.005 (1.005-1.035) 01/05/18 11:35 Urine Protein Negative mg/dL (<30 mg/dL) 01/05/18 11:35 Urine Glucose (UA) Negative mg/dL (NEGATIVE) 01/05/18 11:35 Urine Ketones Negative mg/dL (NEGATIVE) 01/05/18 11:35 Urine Blood Negative (NEGATIVE) 01/05/18 11:35 Urine Nitrate Negative (NEGATIVE) 01/05/18 11:35 Urine Bilirubin Negative (NEGATIVE) 01/05/18 11:35 Urine Urobilinogen 0.2 E.U./dL (<1 E.U./dL) 01/05/18 11:35 Ur Leukocyte Esterase Small Marvel/uL (NEGATIVE) H 01/05/18 11:35 Urine RBC 0 - 2 /hpf (0-2) 01/05/18 11:35 Urine WBC 5 - 10 /hpf (0-6) 01/05/18 11:35 Ur Epithelial Cells 4 - 5 /hpf (0-5) 01/05/18 11:35 Urine Bacteria Few (NEG) 01/05/18 11:35 Salicylates < 1 mg/dL (2.0-20.0) L 01/04/18 23:25 Acetaminophen < 10.0 ug/ml (10.0-20.0) L 05/08/18 23:25 Alcohol, Quantitative < 10 mg/dL (0-10) 01/04/18 23:25 Blood Type O POSITIVE 01/04/18 23:51 Blood Type Confirm O POSITIVE 01/05/18 00:36 Antibody Screen Negative 01/04/18 23:51 BBK History Checked No verified bt 01/04/18 23:51 Discharge Exam - Head Exam Head Exam: ATRAUMATIC, NORMOCEPHALIC Discharge Plan - Discharge Medications Prescriptions: Donepezil [Aricept] 5 mg PO HS #30 tab - Follow Up Plan Condition: GOOD Disposition: HOME/ ROUTINE Instructions: Chest Pain, Chest Pain That Is Not Caused by the Heart (DC) Additional Instructions: - You are given a script for Donepezil. Take the medication every evening. - On your CAT scan of abdomen, there were several liver cysts seen, up to 1.4cm. 1 cm calcified lesion. Outpatient MRI Abdomen and Pelvis. Follow up at [facility] clinic in 1 week. - Return to ER for any concerns. Referrals: PCP,NO [Non-Staff] -
[2018-01-06] MEDS ORDERED: Gadodiamide 287 MG/ML VIAL (15ML) IV ONE (16:26)
[2018-01-06 17:33] VITALS: BP 130/65; PULSE 75; TEMP 98; O2SAT 99
--- NOTE | 2018-01-06 17:36 | MRI ---
PROCEDURE: MRI Abdomen with and without contrast HISTORY: Liver lesions COMPARISON: None available. TECHNIQUE: Multisequence, multiplanar MR images of the abdomen with and without gadolinium contrast enhancement. 15 cc of Omniscan FINDINGS: LIVER: Multiple small simple cysts are seen throughout the liver. The largest cyst 14 mm. There are no solid lesions GALLBLADDER: Unremarkable. SPLEEN: Unremarkable. PANCREAS: Unremarkable. ADRENALS: Unremarkable. KIDNEYS: Simple cysts in the right kidney. AORTA: No aneurysm. ASCITES: None. PERITONEUM: Unremarkable. LYMPH NODES: Unremarkable. OTHER FINDINGS: None. IMPRESSION: Multiple small cysts in the liver.
[2018-01-06] MEDS ORDERED: DiphenhydrAMINE 50 mg/ml Inj IVP STA (23:47)
[2018-01-07] MEDS: Pantoprazole 40 mg EC Tab PO SCH ×2 (05:49→17:01)
--- NOTE | 2018-01-07 07:55 | CP.PCM.PN ---
Subjective - Date & Time of Evaluation Date of Evaluation: 01/07/18 Time of Evaluation: 06:35 - Subjective Subjective: Lying in bed, no distress, sleeping, denies chest pain,denies shortness of breath Reason for consultation and follow up: Cardiac evaluation, chest pain Seen and examined by me and Dr. Zavala Objective - Vital Signs/Intake and Output Vital Signs (last 24 hours): Temp Pulse Resp BP Pulse Ox 98 F 75 18 130/65 99 01/06/18 17:32 01/06/18 17:32 01/06/18 17:32 01/06/18 17:32 01/06/18 17:32 Intake and Output: 01/07/18 01/07/18 06:59 18:59 Intake Total 780 Balance 780 - Medications Medications: Current Medications Docusate Sodium (Colace) 100 mg PO BID [facility] Last Admin: 01/06/18 17:20 Dose: 100 mg Sodium Chloride (Sodium Chloride 0.9%) 1,000 mls @ 80 mls/hr IV .[id number] [facility] Last Admin: 01/06/18 02:18 Dose: 80 mls/hr Ceftriaxone Sodium (Rocephin 1 Gram Ivpb) 1 gm in 100 mls @ 100 mls/hr IVPB DAILY [facility] PRN Reason: Protocol Last Admin: 01/06/18 09:31 Dose: 100 mls/hr Pantoprazole Sodium (Protonix Ec Tab) 40 mg PO 0600,1600 [facility] Last Admin: 01/07/18 05:49 Dose: Not Given - Labs Labs: 01/06/18 06:00 01/06/18 06:00 - Constitutional Appears: No Acute Distress - Eye Exam Eye Exam: Normal appearance - ENT Exam ENT Exam: Mucous Membranes Moist - Respiratory Exam Respiratory Exam: Clear to Ausculation Bilateral, NORMAL BREATHING PATTERN - Cardiovascular Exam Cardiovascular Exam: +S1, +S2 - GI/Abdominal Exam GI & Abdominal Exam: Soft, Normal Bowel Sounds - Extremities Exam Extremities Exam: Normal Capillary Refill - Neurological Exam Neurological Exam: Alert, Awake Additional comments: confuse - Skin Skin Exam: Intact, Normal Color, Warm Assessment and Plan - Assessment and Plan (Free Text) Assessment: An 82 year old female, frail, who was brought by EMS due to altered mental status. She speaks creole, needed language line,unable to obtain more history as she is confuse and does not remember anything. complaints of chest pain and chest tenderness and abdominal pain. Atypical chest pain with tenderness. Plan: Agitated last night, Ativan given Speaks creole, Cardiac status stable No evidence of myocardial ischemia Troponin negative results Echo- normal, LVEF 59% Continue IV hydration Continue current treatment Continue current medications Reconditioning Will follow up Plan and treatment discussed with Dr. Zavala
[2018-01-07 08:47] LABS: BASO # 0.02 K/mm3 (0.0-2.0); BASO % 0.4 % (0.0-3.0); EOS # 0.1 (0.0-0.7); EOS % 1.4 % (1.5-5.0); GRAN # 2.67 (1.4-6.5); GRAN % 53.8 % (50.0-68.0); HEMOGLOBIN 10.7 g/dL (12.0-16.0); LYMPH # 1.7 (1.2-3.4); LYMPH % 34.1 % (22.0-35.0); MEAN CELL VOLUME 91.3 fl (80.0-105.0); MEAN CORPUSCULAR HEMOGLOBIN 29.9 pg (25.0-35.0); MEAN CORPUSCULAR HGB CONC 32.7 g/dl (31.0-37.0); MEAN PLATELET VOLUME 9.7 fl (7.0-11.0); MONO # 0.5 (0.1-0.6); MONO % 10.3 % (1.0-6.0); RBC 3.58 10^6/uL (3.5-6.1); RED CELL DISTRIBUTION WIDTH 13.6 % (11.5-14.5)
[2018-01-07 08:58] LABS: ALB/GLOB RATIO 1.3 (1.1-1.8); ALBUMIN 3.6 g/dL (3.0-4.8); ALT/SGPT 23 U/L (7-56); AST/SGOT 34 U/L (14-36); BLOOD UREA NITROGEN 12 mg/dL (7-21); GFR AFRICAN-AMERICAN > 60; GFR NON-AFRICAN AMERICAN > 60
[2018-01-07] MEDS: cefTRIAXone 1 gm 1 GM/100 ML BAG IVPB SCH (09:30)
--- NOTE | 2018-01-07 11:39 | CP.PCM.DIS ---
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 (4) Dementia Status: Chronic Hospital Course - Lab Results Lab Results: Micro Results 01/05/18 19:58 Blood-Venous Blood Culture - Preliminary NO GROWTH AFTER 24 HOURS 01/05/18 19:58 Blood-Venous Blood Culture - Preliminary NO GROWTH AFTER 24 HOURS 01/05/18 11:36 Urine Urine Culture - Final No Growth (<1,000 CFU/ML) Most Recent Lab Values WBC 5.0 10^3/ul (4.5-11.0) D 01/07/18 07:50 RBC 3.58 10^6/uL (3.5-6.1) 01/07/18 07:50 Hgb 10.7 g/dL (12.0-16.0) L 01/07/18 07:50 Hct 32.7 % (36.0-48.0) L 01/07/18 07:50 MCV 91.3 fl (80.0-105.0) 01/07/18 07:50 MCH 29.9 pg (25.0-35.0) 01/07/18 07:50 MCHC 32.7 g/dl (31.0-37.0) 01/07/18 07:50 RDW 13.6 % (11.5-14.5) 01/07/18 07:50 Plt Count 284 10^3/uL (120.0-450.0) 01/07/18 07:50 MPV 9.7 fl (7.0-11.0) 01/07/18 07:50 Gran % 53.8 % (50.0-68.0) 01/07/18 07:50 Lymph % (Auto) 34.1 % (22.0-35.0) 01/07/18 07:50 [place] % (Auto) 10.3 % (1.0-6.0) H 01/07/18 07:50 Eos % (Auto) 1.4 % (1.5-5.0) L 01/07/18 07:50 Baso % (Auto) 0.4 % (0.0-3.0) 01/07/18 07:50 Gran # 2.67 (1.4-6.5) 01/07/18 07:50 Lymph # (Auto) 1.7 (1.2-3.4) 01/07/18 07:50 [place] # (Auto) 0.5 (0.1-0.6) 01/07/18 07:50 Eos # (Auto) 0.1 (0.0-0.7) 01/07/18 07:50 Baso # (Auto) 0.02 K/mm3 (0.0-2.0) 01/07/18 07:50 Neutrophils % (Manual) 80 % (50.0-70.0) H 01/04/18 23:25 Band Neutrophils % 9 % (0-2) H 01/04/18 23:25 Lymphocytes % (Manual) 6 % (22.0-35.0) L 01/04/18 23:25 Monocytes % (Manual) 4 % (1.0-6.0) 01/04/18 23:25 Basophils % (Manual) 1 % (0.0-1.0) 01/04/18 23:25 Platelet Evaluation Normal (NORMAL) 01/04/18 23:25 pO2 43 mm/Hg (30-55) 01/05/18 01:13 VBG pH 7.30 (7.32-7.43) L 01/05/18 01:13 VBG pCO2 55.0 (40-60) 01/05/18 01:13 VBG HCO3 27.1 mmol/l (21-28) 01/05/18 01:13 VBG Total CO2 28.8 mmol.L (22-28) H 01/05/18 01:13 VBG O2 Sat (Calc) 79.3 % (40-65) H 01/05/18 01:13 VBG Base Excess -0.3 mmol/L (0.0-2.0) L 01/05/18 01:13 VBG Potassium 3.8 mmol/L (3.6-5.2) 01/05/18 01:13 Sodium 138.0 mmol/L (132-148) 01/05/18 01:13 Chloride 106.0 mmol/L (98-107) 01/05/18 01:13 Glucose 94 mg/dl (65-105) 01/05/18 01:13 Lactate 1.8 mmol/L (0.7-2.1) 01/05/18 01:13 FiO2 21.0 % 01/05/18 01:13 Sodium 146 mmol/L (132-148) 01/07/18 07:50 Potassium 4.1 mmol/L (3.6-5.0) 01/07/18 07:50 Chloride 107 mmol/L (98-107) 01/07/18 07:50 Carbon Dioxide 30 mmol/L (21-33) 01/07/18 07:50 Anion Gap 13 (10-20) 01/07/18 07:50 BUN 12 mg/dL (7-21) 01/07/18 07:50 Creatinine 0.7 mg/dl (0.7-1.2) 01/07/18 07:50 Est GFR ( Amer) > 60 01/07/18 07:50 Est GFR (Non-Af Amer) > 60 01/07/18 07:50 Random Glucose 85 mg/dL (70-110) 01/07/18 07:50 Hemoglobin A1c 5.5 % (4.2-6.5) 01/05/18 10:00 Calcium 10.0 mg/dL (8.4-10.5) 01/07/18 07:50 Phosphorus 4.0 mg/dL (2.5-4.5) 01/05/18 10:00 Magnesium 2.0 mg/dL (1.7-2.2) 01/04/18 23:51 Total Bilirubin 0.8 mg/dL (0.2-1.3) 01/07/18 07:50 AST 34 U/L (14-36) 01/07/18 07:50 ALT 23 U/L (7-56) 01/07/18 07:50 Alkaline Phosphatase 57 U/L (38-126) 01/07/18 07:50 Total Creatine Kinase 149 U/L (35-230) 01/06/18 06:00 Troponin I < 0.01 ng/mL D 01/06/18 06:00 Total Protein 6.3 g/dL (5.8-8.3) 01/07/18 07:50 Albumin 3.6 g/dL (3.0-4.8) 01/07/18 07:50 Globulin 2.7 gm/dL 01/07/18 07:50 Albumin/Globulin Ratio 1.3 (1.1-1.8) 01/07/18 07:50 Triglycerides 44 mg/dL (35-160) 01/05/18 10:00 Cholesterol 113 mg/dL (130-200) L 01/05/18 10:00 LDL Cholesterol Direct < 30 mg/dL (0-129) 01/05/18 10:00 HDL Cholesterol 69 mg/dL (29-60) H 01/05/18 10:00 Procalcitonin 30.86 NG/ML (0.19-0.49) H 01/06/18 06:30 TSH 3rd Generation 1.70 mIU/mL (0.46-4.68) 01/05/18 10:00 Venous Blood Potassium 3.8 mmol/L (3.6-5.2) 01/05/18 01:13 Urine Color Yellow (YELLOW) 01/05/18 11:35 Urine Appearance Clear (CLEAR) 01/05/18 11:35 Urine pH 6.5 (4.7-8.0) 01/05/18 11:35 Ur Specific Reading <= 1.005 (1.005-1.035) 01/05/18 11:35 Urine Protein Negative mg/dL (<30 mg/dL) 01/05/18 11:35 Urine Glucose (UA) Negative mg/dL (NEGATIVE) 01/05/18 11:35 Urine Ketones Negative mg/dL (NEGATIVE) 01/05/18 11:35 Urine Blood Negative (NEGATIVE) 01/05/18 11:35 Urine Nitrate Negative (NEGATIVE) 01/05/18 11:35 Urine Bilirubin Negative (NEGATIVE) 01/05/18 11:35 Urine Urobilinogen 0.2 E.U./dL (<1 E.U./dL) 01/05/18 11:35 Ur Leukocyte Esterase Small Marvel/uL (NEGATIVE) H 01/05/18 11:35 Urine RBC 0 - 2 /hpf (0-2) 01/05/18 11:35 Urine WBC 5 - 10 /hpf (0-6) 01/05/18 11:35 Ur Epithelial Cells 4 - 5 /hpf (0-5) 01/05/18 11:35 Urine Bacteria Few (NEG) 01/05/18 11:35 Salicylates < 1 mg/dL (2.0-20.0) L 01/04/18 23:25 Acetaminophen < 10.0 ug/ml (10.0-20.0) L 01/04/18 23:25 Alcohol, Quantitative < 10 mg/dL (0-10) 01/04/18 23:25 HIV 1&2 Ag/Ab, 4th Gen Nonreactive (Nonreactive) 01/06/18 10:00 Blood Type O POSITIVE 01/04/18 23:51 Blood Type Confirm O POSITIVE 01/05/18 00:36 Antibody Screen Negative 01/04/18 23:51 BBK History Checked No verified bt 01/04/18 23:51 - Hospital Course Hospital Course: 82 year old female who presented to ED via EMS for generalized weakness. Pt was admitted for SIRS, atypical chest pain. EKG showed no abnormalities, troponins negativex3. Pt had leukocytosis with elevated procalcitonin. No source of infection found, CXR, UA negative. Pt received Imaging showed several liver simple cysts, largest measuring 14 mm and several simple renal cysts in right kidney. Pt's Cr level normal, normotensive throughout admission. Pt to follow up outpatient with [facility] clinic for PMD and MRI in 3-6 months. Pt also given a script for Donepezil. Case seen and discussed with Dr Arvizu. Janki Miller, PGY1 Discharge Exam - Head Exam Head Exam: ATRAUMATIC, NORMOCEPHALIC - Eye Exam Eye Exam: EOMI, PERRL. absent: Conjunctival injection, Nystagmus, Scleral icterus Pupil Exam: NORMAL ACCOMODATION, PERRL. absent: Irregular, Unequal - ENT Exam ENT Exam: Mucous Membranes Moist - Neck Exam Neck exam: Full Rom - Respiratory Exam Respiratory Exam: Clear to PA & Lateral, NORMAL BREATHING PATTERN. absent: Chest Wall Tenderness, Rales, Respiratory Distress, Stridor - Cardiovascular Exam Cardiovascular Exam: RRR, +S1, +S2. absent: Systolic Murmur - GI/Abdominal Exam GI & Abdominal Exam: Normal Bowel Sounds, Soft. absent: Distended, Guarding, Organomegaly, Rebound, Tenderness - Extremities Exam Extremities exam: normal inspection - Back Exam Back exam: NORMAL INSPECTION - Neurological Exam Neurological exam: Alert, Oriented x3 - Psychiatric Exam Psychiatric exam: Normal Affect, Normal Mood - Skin Skin Exam: Dry, Normal Color, Warm Discharge Plan - Discharge Medications Prescriptions: Donepezil [Aricept] 5 mg PO HS #30 tab - Follow Up Plan Condition: GOOD Disposition: HOME/ ROUTINE Instructions: Chest Pain, Chest Pain That Is Not Caused by the Heart (DC) Additional Instructions: - You are given a script for Donepezil. Take the medication every evening. - MRI liver showed several liver lesions, largest measuring 14 mm. There are also multiple simple renal cysts in right kidney. - F/u with neighborhood clinic at [facility] [place] in 1 week. - Obtain a repeat MRI liver/abdomen in 3-6 months to follow up on liver and renal lesions. - Return to ER for any concerns. Referrals: PCP,NO [Non-Staff] - <Shellie Arvizu - Last Filed: 01/09/18 07:35> Provider - Provider Date of Admission: 01/05/18 03:37 Attending physician: Shellie Arvizu MD Primary care physician: Leena Ramirez MD Hospital Course - Lab Results Lab Results: Micro Results 01/05/18 19:58 Blood-Venous Blood Culture - Preliminary NO GROWTH AFTER 3 DAYS 01/05/18 19:58 Blood-Venous Blood Culture - Preliminary NO GROWTH AFTER 3 DAYS 01/05/18 11:36 Urine Urine Culture - Final No Growth (<1,000 CFU/ML) Most Recent Lab Values WBC 5.0 10^3/ul (4.5-11.0) D 01/07/18 07:50 RBC 3.58 10^6/uL (3.5-6.1) 01/07/18 07:50 Hgb 10.7 g/dL (12.0-16.0) L 01/07/18 07:50 Hct 32.7 % (36.0-48.0) L 01/07/18 07:50 MCV 91.3 fl (80.0-105.0) 01/07/18 07:50 MCH 29.9 pg (25.0-35.0) 01/07/18 07:50 MCHC 32.7 g/dl (31.0-37.0) 01/07/18 07:50 RDW 13.6 % (11.5-14.5) 01/07/18 07:50 Plt Count 284 10^3/uL (120.0-450.0) 01/07/18 07:50 MPV 9.7 fl (7.0-11.0) 01/07/18 07:50 Gran % 53.8 % (50.0-68.0) 01/07/18 07:50 Lymph % (Auto) 34.1 % (22.0-35.0) 01/07/18 07:50 [place] % (Auto) 10.3 % (1.0-6.0) H 01/07/18 07:50 Eos % (Auto) 1.4 % (1.5-5.0) L 01/07/18 07:50 Baso % (Auto) 0.4 % (0.0-3.0) 01/07/18 07:50 Gran # 2.67 (1.4-6.5) 01/07/18 07:50 Lymph # (Auto) 1.7 (1.2-3.4) 01/07/18 07:50 [place] # (Auto) 0.5 (0.1-0.6) 01/07/18 07:50 Eos # (Auto) 0.1 (0.0-0.7) 01/07/18 07:50 Baso # (Auto) 0.02 K/mm3 (0.0-2.0) 01/07/18 07:50 Neutrophils % (Manual) 80 % (50.0-70.0) H 01/04/18 23:25 Band Neutrophils % 9 % (0-2) H 01/04/18 23:25 Lymphocytes % (Manual) 6 % (22.0-35.0) L 01/04/18 23:25 Monocytes % (Manual) 4 % (1.0-6.0) 01/04/18 23:25 Basophils % (Manual) 1 % (0.0-1.0) 01/04/18 23:25 Platelet Evaluation Normal (NORMAL) 01/04/18 23:25 pO2 43 mm/Hg (30-55) 01/05/18 01:13 VBG pH 7.30 (7.32-7.43) L 01/05/18 01:13 VBG pCO2 55.0 (40-60) 01/05/18 01:13 VBG HCO3 27.1 mmol/l (21-28) 01/05/18 01:13 VBG Total CO2 28.8 mmol.L (22-28) H 01/05/18 01:13 VBG O2 Sat (Calc) 79.3 % (40-65) H 01/05/18 01:13 VBG Base Excess -0.3 mmol/L (0.0-2.0) L 01/05/18 01:13 VBG Potassium 3.8 mmol/L (3.6-5.2) 01/05/18 01:13 Sodium 138.0 mmol/L (132-148) 01/05/18 01:13 Chloride 106.0 mmol/L (98-107) 01/05/18 01:13 Glucose 94 mg/dl (65-105) 01/05/18 01:13 Lactate 1.8 mmol/L (0.7-2.1) 01/05/18 01:13 FiO2 21.0 % 01/05/18 01:13 Sodium 146 mmol/L (132-148) 01/07/18 07:50 Potassium 4.1 mmol/L (3.6-5.0) 01/07/18 07:50 Chloride 107 mmol/L (98-107) 01/07/18 07:50 Carbon Dioxide 30 mmol/L (21-33) 01/07/18 07:50 Anion Gap 13 (10-20) 01/07/18 07:50 BUN 12 mg/dL (7-21) 01/07/18 07:50 Creatinine 0.7 mg/dl (0.7-1.2) 01/07/18 07:50 Est GFR ( Amer) > 60 01/07/18 07:50 Est GFR (Non-Af Amer) > 60 01/07/18 07:50 Random Glucose 85 mg/dL (70-110) 01/07/18 07:50 Hemoglobin A1c 5.5 % (4.2-6.5) 01/05/18 10:00 Calcium 10.0 mg/dL (8.4-10.5) 01/07/18 07:50 Phosphorus 4.0 mg/dL (2.5-4.5) 01/05/18 10:00 Magnesium 2.0 mg/dL (1.7-2.2) 01/04/18 23:51 Total Bilirubin 0.8 mg/dL (0.2-1.3) 01/07/18 07:50 AST 34 U/L (14-36) 01/07/18 07:50 ALT 23 U/L (7-56) 01/07/18 07:50 Alkaline Phosphatase 57 U/L (38-126) 01/07/18 07:50 Total Creatine Kinase 149 U/L (35-230) 01/06/18 06:00 Troponin I < 0.01 ng/mL D 01/06/18 06:00 Total Protein 6.3 g/dL (5.8-8.3) 01/07/18 07:50 Albumin 3.6 g/dL (3.0-4.8) 01/07/18 07:50 Globulin 2.7 gm/dL 01/07/18 07:50 Albumin/Globulin Ratio 1.3 (1.1-1.8) 01/07/18 07:50 Triglycerides 44 mg/dL (35-160) 01/05/18 10:00 Cholesterol 113 mg/dL (130-200) L 01/05/18 10:00 LDL Cholesterol Direct < 30 mg/dL (0-129) 01/05/18 10:00 HDL Cholesterol 69 mg/dL (29-60) H 01/05/18 10:00 Procalcitonin 30.86 NG/ML (0.19-0.49) H 01/06/18 06:30 TSH 3rd Generation 1.70 mIU/mL (0.46-4.68) 01/05/18 10:00 Venous Blood Potassium 3.8 mmol/L (3.6-5.2) 01/05/18 01:13 Urine Color Yellow (YELLOW) 01/05/18 11:35 Urine Appearance Clear (CLEAR) 01/05/18 11:35 Urine pH 6.5 (4.7-8.0) 01/05/18 11:35 Ur Specific Reading <= 1.005 (1.005-1.035) 01/05/18 11:35 Urine Protein Negative mg/dL (<30 mg/dL) 01/05/18 11:35 Urine Glucose (UA) Negative mg/dL (NEGATIVE) 01/05/18 11:35 Urine Ketones Negative mg/dL (NEGATIVE) 01/05/18 11:35 Urine Blood Negative (NEGATIVE) 01/05/18 11:35 Urine Nitrate Negative (NEGATIVE) 01/05/18 11:35 Urine Bilirubin Negative (NEGATIVE) 01/05/18 11:35 Urine Urobilinogen 0.2 E.U./dL (<1 E.U./dL) 01/05/18 11:35 Ur Leukocyte Esterase Small [place]/uL (NEGATIVE) H 01/05/18 11:35 Urine RBC 0 - 2 /hpf (0-2) 01/05/18 11:35 Urine WBC 5 - 10 /hpf (0-6) 01/05/18 11:35 Ur Epithelial Cells 4 - 5 /hpf (0-5) 01/05/18 11:35 Urine Bacteria Few (NEG) 01/05/18 11:35 Salicylates < 1 mg/dL (2.0-20.0) L 01/04/18 23:25 Acetaminophen < 10.0 ug/ml (10.0-20.0) L 01/04/18 23:25 Alcohol, Quantitative < 10 mg/dL (0-10) 01/04/18 23:25 HIV 1&2 Ag/Ab, 4th Gen Nonreactive (Nonreactive) 01/06/18 10:00 Blood Type O POSITIVE 01/04/18 23:51 Blood Type Confirm O POSITIVE 01/05/18 00:36 Antibody Screen Negative 01/04/18 23:51 BBK History Checked No verified bt 01/04/18 23:51 Attending/Attestation - Attestation I have personally seen and examined this patient.: Yes I have fully participated in the care of the patient.: Yes I have reviewed all pertinent clinical information, including history, physical exam and plan: Yes Notes (Text): 82 year old female with past medical history of dementia who presented with chest pain. Serial cardiac enzymes were negative and ACS was ruled ruled out. Echocardiogram was reviewed. She was found to have leukocytosis initially which improved. Procalcitonin was also elevated. She was seen by ID. Workup for infectious etiology was negative. MRI abd/pelvis showed several liver and right kidney cysts for which patient is instructed to follow up as outpatient. Patient is discharged home to follow up at [facility]. Outpatient workup / monitoring for simple liver/kidney cysts. Shellie Arvizu MD Hospitalist.
--- NOTE | 2018-01-07 11:51 | CP.PCM.PN ---
Subjective - Date & Time of Evaluation Date of Evaluation: 01/07/18 Time of Evaluation: 10:30 - Subjective Subjective: Comfortable in bed, no fevers, not in distress, no diarrhea, no vomiting, no abdominal pain, no SOB at rest. Objective - Vital Signs/Intake and Output Vital Signs (last 24 hours): Temp Pulse Resp BP Pulse Ox 98 F 75 18 130/65 99 01/06/18 17:32 01/06/18 17:32 01/06/18 17:32 01/06/18 17:32 01/06/18 17:32 Intake and Output: 01/07/18 01/07/18 06:59 18:59 Intake Total 780 Balance 780 - Medications Medications: Current Medications Docusate Sodium (Colace) 100 mg PO BID [facility] Last Admin: 01/06/18 17:20 Dose: 100 mg Sodium Chloride (Sodium Chloride 0.9%) 1,000 mls @ 80 mls/hr IV .[id number] [facility] Last Admin: 01/06/18 02:18 Dose: 80 mls/hr Ceftriaxone Sodium (Rocephin 1 Gram Ivpb) 1 gm in 100 mls @ 100 mls/hr IVPB DAILY [facility] PRN Reason: Protocol Last Admin: 01/06/18 09:31 Dose: 100 mls/hr Pantoprazole Sodium (Protonix Ec Tab) 40 mg PO 0600,1600 [facility] Last Admin: 01/07/18 05:49 Dose: Not Given - Labs Labs: 01/07/18 07:50 01/07/18 07:50 - Constitutional Appears: Non-toxic, Chronically Ill - Head Exam Head Exam: NORMAL INSPECTION - Neck Exam Neck Exam: absent: Meningismus - Respiratory Exam Respiratory Exam: Decreased Breath Sounds - Cardiovascular Exam Cardiovascular Exam: +S1, +S2 - GI/Abdominal Exam GI & Abdominal Exam: Soft. absent: Tenderness Assessment and Plan - Assessment and Plan (Free Text) Plan: Assessment S/P Systemic Inflammatory Response Syndrome, consider acute stress reaction, no evidence of sepsis identified multiple liver cysts Plan CT A/P shows left lower lobe calcified granuloma, liver cysts - abdominal MRI still shows the liver cysts - patient should have work up for the cysts as an outpatient - discussed with Dr. Arvizu will continue to monitor clinically off antibiotics while the patient is in the hospital - PCT is elevated but cultures have been negative, CXR is negative, no evidence of acute infection HIV test is non-reactive
== END 2018-01-07 19:08 | disposition home or self-care (01) ==
LOC: ED 22:24 → ERH 01-05 03:37 → 3RNO 01-05 05:37
PROVIDERS: ADMIT Internal Medicine; ATTEND Internal Medicine
DX: R07.89 Other chest pain (principal); K76.89 Other specified diseases of liver; N28.1 Cyst of kidney, acquired; F43.0 Acute stress reaction; R65.10 Systemic inflammatory response syndrome (SIRS) of non-infectious origin without acute organ dysfunction; F03.90 Unspecified dementia, unspecified severity, without behavioral disturbance, psychotic disturbance, mood disturbance, and anxiety; F05 Delirium due to known physiological condition; R41.82 Altered mental status, unspecified; D72.829 Elevated white blood cell count, unspecified
CPT/HCPCS: 36415; 70450; 71045; 74176; 74183; 80053; 80061; 80320; 80329; 81001; 82550; 82803; 83036; 83735; 84100; 84145; 84443; 84484; 85025; 86850; 86900; 87040; 87086; 87389; 93005; 93306; 96365; 96366; 96375; 96376; 99285; A9579; G0378; J0696; J1200; J2060; J7040